=== PATIENT | male | born 1990 | race Two or more races ===

== ENCOUNTER 2018-05-29 18:38 | Inpatient (IN) | payer OTHER ==
[~2018-05-29] VITALS: Ht 185.4 cm; Wt 85.4 kg
[2018-05-29 19:30] VITALS: BP 124/81; PULSE 84; RESP 18
[2018-05-29 19:45] VITALS: Ht 185.4 cm; Wt 85.4 kg
[2018-05-29] MEDS ORDERED: BISACODYL 10 MG SUPP PR PRN (20:30)
[2018-05-29] MEDS ORDERED: ACETAMINOPHEN 325 MG TAB PO PRN (20:30)
[2018-05-29] MEDS ORDERED: MAGNESIUM HYDROXIDE 30ML CUP PO PRN (20:30)
[2018-05-29] MEDS ORDERED: LACTULOSE 30ML CUP PO PRN (20:30)
[2018-05-29] MEDS: LISINOPRIL 5 MG TAB PO SCH (21:00)
[2018-05-29] MEDS: SENNA TAB PO SCH (21:33)
[2018-05-29] MEDS: LACOSAMIDE (100 MG/10 ML PO SYR) PO SCH (21:33)
[2018-05-29] MEDS: DOCUSATE SODIUM 100 MG CAP PO SCH (21:33)
[2018-05-29] MEDS: CEPHALEXIN 250 MG CAP PO SCH (21:34)
[2018-05-29] MEDS: traZODone 50 MG TAB PO SCH (21:34)
[2018-05-30 02:00] VITALS: BP 121/76; PULSE 78; RESP 18
[2018-05-30] MEDS: CEPHALEXIN 250 MG CAP PO SCH ×4 (06:19→17:29)
[2018-05-30] MEDS: PANTOPRAZOLE (EC) 40 MG TAB PO SCH (06:19)
[2018-05-30 08:00] VITALS: BP 137/71; PULSE 78; RESP 18
[2018-05-30] MEDS: DOCUSATE SODIUM 100 MG CAP PO SCH ×2 (08:16→20:55)
[2018-05-30] MEDS: LACOSAMIDE (100 MG/10 ML PO SYR) PO SCH ×2 (08:19→20:57)
[2018-05-30] MEDS: LISINOPRIL 5 MG TAB PO SCH ×2 (08:19→20:57)
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
[2018-05-30 14:00] VITALS: BP 123/75; PULSE 66; RESP 18
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
[2018-05-30 20:00] VITALS: BP 126/73; PULSE 80; RESP 18
[2018-05-30] MEDS: traZODone 50 MG TAB PO SCH (20:56)
[2018-05-30] MEDS: SENNA TAB PO SCH (20:57)
[2018-05-31] MEDS: CEPHALEXIN 250 MG CAP PO SCH ×4 (00:36→18:00)
[2018-05-31 02:00] VITALS: BP 118/74; PULSE 74; RESP 18
[2018-05-31] MEDS: PANTOPRAZOLE (EC) 40 MG TAB PO SCH (06:04)
[2018-05-31 07:32] VITALS: BP 115/68; PULSE 77; RESP 18
[2018-05-31] MEDS: LISINOPRIL 5 MG TAB PO SCH ×2 (08:23→21:04)
[2018-05-31] MEDS: DOCUSATE SODIUM 100 MG CAP PO SCH ×2 (08:25→21:00)
[2018-05-31] MEDS: LACOSAMIDE (100 MG/10 ML PO SYR) PO SCH ×2 (08:25→21:00)
--- NOTE | 2018-05-31 12:10 | PN ---
Date/Time of Note Date/Time of Note DATE: 05/31/18 TIME: 12:05 Assessment/Plan VTE Prophylaxis Risk score (from Ns)>0 risk: 1 SCD applied (from [facility]): No SCD contraindicated: low risk/ambulating Pharmacological prophylaxis: NA/contraindicated Pharm contraindication: low risk/ambulating Lines/Catheters Urinary Cath still in place: No Assessment/Plan Hospital Course SUBJECTIVE: No acute distress. Ambulating in room. OBJECTIVE: Vital signs-see below PHYSICAL EXAM: Constitutional: Well-developed, adequately built, lying in bed comfortably. Psych: nl mood/affect, no complaints Head: atraumatic, normocephalic Eyes: nl conjunctiva, nl sclera ENMT: mucosa pink and moist, nl external ears & nose Neck: non-tender, supple Respiratory: clear to auscultation, normal air movement Cardiovascular: +AICD.. nl pulses, regular rate and rhythm Gastrointestinal: non-tender, soft, bowel sounds active in all 4 quadrants. Musculoskeletal/extremities: nl extremities to inspection, motor strength equal bilaterally, no focal deficit. Normal pulses,no cyanosis, no edema. Neurological: Alert oriented 3,nl speech, nl strength Skin: nl turgor ASSESSMENT/PLAN: 28-year-old male with polysubstance abuse,HTN, seizure disorders, admitted at [facility] with cardiac arrest requiring hypothermia/mechanical ventilation secondary to substance overdose CHF, AICD placed, transferred for rehabilitation. 1. Status post cardiac arrest secondary to polysubstance overdose -Stable. Continue current cardiac medications. 2. CHF, AICD placed -Continue bb/acei=>decrease acei to 2.5 mg for room for Coreg. - continue Keflex prophylaxis for another 1 day to finish course 3. Hypertension -Stable. -cont.antihypertensives 4. Seizure disorders likely from substance abuse -Patient has been refusing Vimpat. -No further seizure activities. 5. Substance abuse -Cessation advised DVT prophylaxis: SCDs PUD prophylaxis: Not indicated Patient was seen in collaboration with Result Diagram: 05/30/182905/30/1829 Exam/Review of Systems Exam Vitals Vital Signs Date Temp Pulse Resp B/P (MAP) Pulse Ox O2 O2 Flow FiO2 Time Delivery Rate 05/31/18 97.4 77 18 115/68 98 Room Air 07:32 (84) Intake and Output 05/30/18 05/30/18 05/31/18 1515:00 23:00 07:00 IntakeIntake Total 1600 ml 320 ml BalanceBalance 1600 ml 320 ml Medications Medication Current Medications Carvedilol (Coreg) 3.125 mg BID PO Last administered on 05/31/18 08:22; Admin Dose 3.125 MG; Start 05/29/18 at 21:00 Cephalexin (Keflex) 250 mg Q6 PO Last administered on 05/31/18 06:04; Admin Dose 250 MG; Start 05/29/18 at 20:30; Stop 05/31/18 at 20:29 Lacosamide (Vimpat Liq) 50 mg BID PO Last administered on 05/30/18 20:57; Admin Dose 50 MG; Start 05/29/18 at 21:00 Lisinopril (Zestril) 5 mg BID PO Last administered on 05/31/18 08:23; Admin Dose 5 MG; Start 05/29/18 at 21:00 Pantoprazole (Protonix Tab) 40 mg DAILY@06 PO Last administered on 05/31/18 06:04; Admin Dose 40 MG; Start 05/30/18 at 06:00 Trazodone HCl (Desyrel) 25 mg HS PO Last administered on 05/30/18 20:56; Admin Dose 25 MG; Start 05/29/18 at 21:00 Docusate Sodium (Colace) 100 mg BID PO Last administered on 05/30/18 20:55; Admin Dose 100 MG; Start 05/29/18 at 21:00 Senna (Senokot) 1 tab HS PO Last administered on 05/29/18 21:33; Admin Dose 1 TAB; Start 05/29/18 at 21:00 Magnesium Hydroxide (Milk Of Mag) 30 ml BID PRN PO CONSTIPATION; Start 05/29/18 at 20:30 Lactulose (Enulose) 20 gm DAILY PRN PO CONSTIPATION; Start 05/29/18 at 20:30 Bisacodyl (Dulcolax Supp) 10 mg DAILY PRN [place] CONSTIPATION; Start 05/29/18 at 20:30 Acetaminophen (Tylenol Tab) 650 mg Q4H PRN PO PAIN; Start 05/29/18 at 20:30 NARCISA TALBERT NP May 31, 2018 12:10
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
[2018-05-31 19:31] VITALS: BP 146/81; PULSE 75; RESP 18
[2018-05-31] MEDS: SENNA TAB PO SCH (21:00)
[2018-05-31] MEDS: traZODone 50 MG TAB PO SCH (21:02)
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
[2018-06-01 02:00] VITALS: BP 138/72; PULSE 79; RESP 18
[2018-06-01] MEDS: PANTOPRAZOLE (EC) 40 MG TAB PO SCH (06:16)
[2018-06-01 07:30] VITALS: BP 137/77; PULSE 78; RESP 20
[2018-06-01] MEDS: LISINOPRIL 5 MG TAB PO SCH (09:00)
[2018-06-01] MEDS: DOCUSATE SODIUM 100 MG CAP PO SCH (09:07)
[2018-06-01] MEDS: LACOSAMIDE (100 MG/10 ML PO SYR) PO SCH (09:09)
--- NOTE | 2018-06-01 13:12 | PN ---
Date/Time of Note Date/Time of Note DATE: 06/01/18 TIME: 13:09 Subjective Overall improving Objective Vital Signs Date Temp Pulse Resp B/P (MAP) Pulse Ox O2 O2 Flow FiO2 Time Delivery Rate 06/01/18 97.7 78 20 137/77 98 Room Air 07:30 (97) Intake and Output 05/31/18 05/31/18 06/01/18 1515:00 23:00 07:00 IntakeIntake Total 700 ml BalanceBalance 700 ml Exam INTERDISCIPLINARY TEAM CONFERENCE Physical Exam: Pulm- cta Abd-soft BOWEL- Cont BLADDER-Cont SKIN- intact OT- DRESSING- s BATHING-s TOILETING-s PT- BED MOBILITY-s TRANSFERS-s AMBULATION-s 200 feet SPEECH- COGNITION- sba expresion, mod assist memory and cognition A/P- Interdisciplinary team conference held today. Please see interdisciplinary sh eet. Working toward d.c. on 06/02 with post discharge follow up of physical therapy, occupational therapy, speech therapy Results/Medications Result Diagram: 05/30/182905/30/1829 Results 24 hrs Laboratory Tests Test 06/01/18 05:59 Triglycerides Level 82 Cholesterol Level 124 LDL Cholesterol, Calculated 75 HDL Cholesterol 33 Cholesterol/HDL Ratio 3.7 Medications Current Medications Carvedilol (Coreg) 3.125 mg BID PO Last administered on 06/01/18 09:11; Admin Dose 3.125 MG; Start 05/29/18 at 21:00 Lacosamide (Vimpat Liq) 50 mg BID PO Last administered on 06/01/18 09:09; Admin Dose 50 MG; Start 05/29/18 at 21:00 Pantoprazole (Protonix Tab) 40 mg DAILY@06 PO Last administered on 06/01/18 06:16; Admin Dose 40 MG; Start 05/30/18 at 06:00 Trazodone HCl (Desyrel) 25 mg HS PO Last administered on 05/31/18 21:02; Admin Dose 25 MG; Start 05/29/18 at 21:00 Docusate Sodium (Colace) 100 mg BID PO Last administered on 06/01/18 09:07; Admin Dose 100 MG; Start 05/29/18 at 21:00 Senna (Senokot) 1 tab HS PO Last administered on 2/25/19at 21:33; Admin Dose 1 TAB; Start 05/29/18 at 21:00 Magnesium Hydroxide (Milk Of Mag) 30 ml BID PRN PO CONSTIPATION; Start 05/29/18 at 20:30 Lactulose (Enulose) 20 gm DAILY PRN PO CONSTIPATION; Start 05/29/18 at 20:30 Bisacodyl (Dulcolax Supp) 10 mg DAILY PRN [place] CONSTIPATION; Start 05/29/18 at 20:30 Acetaminophen (Tylenol Tab) 650 mg Q4H PRN PO PAIN; Start 05/29/18 at 20:30 Lisinopril (Zestril) 2.5 mg BID PO Last administered on 05/31/18at 21:04; Admin Dose 2.5 MG; Start 05/31/18 at 21:00 YEFRI RAHMAN MD Jun 01, 2018 13:11
--- NOTE | 2018-06-01 13:59 | PN ---
Date/Time of Note Date/Time of Note DATE: 06/01/18 TIME: 13:58 Assessment/Plan VTE Prophylaxis Risk score (from Ns)>0 risk: 5 SCD applied (from [facility]): No SCD contraindicated: low risk/ambulating, patient refusal Pharmacological prophylaxis: NA/contraindicated Pharm contraindication: low risk/ambulating Lines/Catheters Urinary Cath still in place: No Assessment/Plan Hospital Course SUBJECTIVE: Patient is going home today. OBJECTIVE: Vital signs-see below PHYSICAL EXAM: Constitutional: Well-developed, adequately built, lying in bed comfortably. Psych: nl mood/affect, no complaints Head: atraumatic, normocephalic Eyes: nl conjunctiva, nl sclera ENMT: mucosa pink and moist, nl external ears & nose Neck: non-tender, supple Respiratory: clear to auscultation, normal air movement Cardiovascular: +AICD.. nl pulses, regular rate and rhythm Gastrointestinal: non-tender, soft, bowel sounds active in all 4 quadrants. Musculoskeletal/extremities: nl extremities to inspection, motor strength equal bilaterally, no focal deficit. Normal pulses,no cyanosis, no edema. Neurological: Alert oriented 3,nl speech, nl strength Skin: nl turgor ASSESSMENT/PLAN: 28-year-old male with polysubstance abuse,HTN, seizure disorders, admitted at [facility] with cardiac arrest requiring hypothermia/mechanical ventilation secondary to substance overdose CHF, AICD placed, transferred for rehabilitation. 1. Status post cardiac arrest secondary to polysubstance overdose -Stable. Continue current cardiac medications. 2. CHF, AICD placed -Continue bb/acei -Status post Keflex prophylaxis. AICD site looks clean. 3. Hypertension -Stable. -cont.antihypertensives 4. Seizure disorders likely from substance abuse -Patient has been refusing Vimpat. -No further seizure activities. 5. Substance abuse -Cessation advised DVT prophylaxis: SCDs PUD prophylaxis: Not indicated Patient was seen in collaboration with Result Diagram: 05/30/182905/30/18 0030 Results 24hrs Laboratory Tests Test 06/01/18 05:59 Triglycerides Level 82 Cholesterol Level 124 LDL Cholesterol, Calculated 75 HDL Cholesterol 33 Cholesterol/HDL Ratio 3.7 Exam/Review of Systems Exam Vitals Vital Signs Date Temp Pulse Resp B/P (MAP) Pulse Ox O2 O2 Flow FiO2 Time Delivery Rate 06/01/18 97.7 78 20 137/77 98 Room Air 07:30 (97) Intake and Output 05/31/18 05/31/18 06/01/18 1515:00 23:00 07:00 IntakeIntake Total 700 ml BalanceBalance 700 ml Results Results 24hrs Laboratory Tests Test 06/01/18 05:59 Triglycerides Level 82 Cholesterol Level 124 LDL Cholesterol, Calculated 75 HDL Cholesterol 33 Cholesterol/HDL Ratio 3.7 Medications Medication Current Medications Carvedilol (Coreg) 3.125 mg BID PO Last administered on 06/01/18 09:11; Admin Dose 3.125 MG; Start 05/29/18 at 21:00 Lacosamide (Vimpat Liq) 50 mg BID PO Last administered on 06/01/18 09:09; Admin Dose 50 MG; Start 05/29/18 at 21:00 Pantoprazole (Protonix Tab) 40 mg DAILY@06 PO Last administered on 06/01/18 06:16; Admin Dose 40 MG; Start 05/30/18 at 06:00 Trazodone HCl (Desyrel) 25 mg HS PO Last administered on 05/31/18 21:02; Admin Dose 25 MG; Start 05/29/18 at 21:00 Docusate Sodium (Colace) 100 mg BID PO Last administered on 06/01/18 09:07; Admin Dose 100 MG; Start 05/29/18 at 21:00 Senna (Senokot) 1 tab HS PO Last administered on 05/29/18at 21:33; Admin Dose 1 TAB; Start 05/29/18 at 21:00 Magnesium Hydroxide (Milk Of Mag) 30 ml BID PRN PO CONSTIPATION; Start 05/29/18 at 20:30 Lactulose (Enulose) 20 gm DAILY PRN PO CONSTIPATION; Start 05/29/18 at 20:30 Bisacodyl (Dulcolax Supp) 10 mg DAILY PRN [place] CONSTIPATION; Start 05/29/18 at 20:30 Acetaminophen (Tylenol Tab) 650 mg Q4H PRN PO PAIN; Start 05/29/18 at 20:30 Lisinopril (Zestril) 2.5 mg BID PO Last administered on 05/31/18at 21:04; Admin Dose 2.5 MG; Start 05/31/18 at 21:00 NARCISA TALBERT NP Jun 01, 2018 13:59
[2018-06-01 14:00] VITALS: BP 121/71; PULSE 71; RESP 18
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
--- NOTE | 2018-06-02 13:36 | RADRPT ---
Vent Rate: 75 bpm RR Interval: 0 msec [place] Interval: 160 msec QRS Duration: 98 msec QT Interval: 394 msec QTC Interval: 439 msec P-R-T [place]: 33 - 39 - 33 degrees Sinus rhythm with blocked premature atrial complexes with occasional premature ventricular complexes Septal infarct , age undetermined Early normal repolarization Abnormal ECG Electronically Signed By: Binu Meza
--- NOTE | 2018-06-02 13:36 | RADRPT ---
Vent Rate: 66 bpm RR Interval: 0 msec [place] Interval: 174 msec QRS Duration: 94 msec QT Interval: 390 msec QTC Interval: 408 msec P-R-T [place]: 54 - 65 - 66 degrees Sinus rhythm with premature supraventricular complexes ST elevation, probably due to early repolarization Borderline ECG Electronically Signed By: Binu Meza
== END 2018-06-01 14:10 | disposition home health service (06) | DRG 949 ==
LOC: VRC 18:38
PROVIDERS: ADMIT Physical Medicine & Rehabilitation; ATTEND Internal Medicine Pulmonary Disease
PROC: F07Z5ZZ Bed Mobility Treatment (ICD-10-PCS; principal; 2018-05-30)
PROC: F07Z8ZZ Transfer Training Treatment (ICD-10-PCS; 2018-05-30)
PROC: F07Z9ZZ Gait Training/Functional Ambulation Treatment (ICD-10-PCS; 2018-05-30)
PROC: F08Z2ZZ Grooming/Personal Hygiene Treatment (ICD-10-PCS; 2018-05-30)
PROC: F08Z1ZZ Dressing Techniques Treatment (ICD-10-PCS; 2018-05-30)
PROC: F08Z0ZZ Bathing/Showering Techniques Treatment (ICD-10-PCS; 2018-05-30)
DX: Z48.812 Encounter for surgical aftercare following surgery on the circulatory system (principal); K92.0 Hematemesis; G93.1 Anoxic brain damage, not elsewhere classified; G40.509 Epileptic seizures related to external causes, not intractable, without status epilepticus; I42.9 Cardiomyopathy, unspecified; F19.10 Other psychoactive substance abuse, uncomplicated; F43.12 Post-traumatic stress disorder, chronic; F06.31 Mood disorder due to known physiological condition with depressive features; F90.9 Attention-deficit hyperactivity disorder, unspecified type; I11.0 Hypertensive heart disease with heart failure; I50.9 Heart failure, unspecified; R13.10 Dysphagia, unspecified; Z95.810 Presence of automatic (implantable) cardiac defibrillator; Z74.09 Other reduced mobility; Z86.74 Personal history of sudden cardiac arrest
CPT/HCPCS: 80053; 80061; 81003; 83735; 84100; 85025; 87081; 87086; 92507; 92610; 93005; 97110; 97112; 97116; 97163; 97166; 97535